=== PATIENT | female | born 1990 | race Hispanic/Latino ===

== ENCOUNTER 2024-08-24 13:46 | Emergency (ER) | payer OTHER ==
[~2024-08-24] VITALS: Ht 157.5 cm; Wt 72.6 kg
[~2024-08-24 13:46] MED LIST: FERR-82 PO; PREN1TAB80 PO
--- NOTE | 2024-08-24 14:59 | ERN ---
ED Note History of Present Illness Stated Complaint: VOMITING Time Seen by MD: 13:47 Dictation: Patient is a 33-year-old female coming in today with complaints of being recently diagnosed with cholelithiasis last week however has not been referred to a surgeon. She states since she has been having right upper quadrant and epigastric pain with nausea vomiting and can not keep any food down. No fever no chills no chest pain no back pain no change in urination. Allergies: Coded Allergies: No Known Drug Allergies (Unverified Allergy, Unknown, 04/03/24) Home Meds Reported Medications Ferrous Sulfate (Iron) 325 Mg (65 Mg Iron) Tablet, 325 MG PO DAILY, TAB 04/04/24 Vits W-Ca,Fe,FA(<1Mg) ( Vitamins) 27 Mg Iron-800 Mcg Tablet, 1 EACH PO DAILY, TAB 04/04/24 Past Medical History Past Medical History: No Pertinent History Surgical History: Tonsillectomy, BTL Surgical History Other: BREAST AUGMENTATION, LIPO History: Not Applicable : 5 Para: 2 Aborts: 0 RN Note Reviewed/Agreed w/PFSH: Yes Review of System Dictation CONSTITUTIONAL: Negative except for HPI HEAD/FACE: Negative except for HPI EENT: Negative except for HPI RESPIRATORY: Negative except for HPI GASTROINTESTINAL/ABDOMINAL: Negative except for HPI right upper quadrant/ epigastric pain with nausea vomiting GENITOURINARY: Negative except for HPI MUSCULOSKELETAL: Negative except for HPI INTEGUMENTARY: Negative except for HPI NEUROLOGICAL/PSYCH: Negative except for HPI HEMATOLOGIC/LYMPHATIC: Negative except for HPI All Systems Negative, Except as noted above. 13 point review of systems assessed and all negative except for above. Initial Vital Sign VS Vital Signs Date Time Temp Pulse Resp B/P (MAP) Pulse Ox O2 Delivery O2 Flow Rate FiO2 08/24/24 15:20 97.9 94 18 135/86 94 Room Air 0 08/24/24 17:42 21 Physical Exam Dictation Vital Signs reviewed General Appearance: Alert, oriented x 3, moderate acute distress, well dev eloped, nourished. Head and Face: non-traumatic. Eyes: PERRL, pink conjunctivas, eyelid no trauma, anterior chamber with arcus senilis. Ears: Pinnas intact and no signs of trauma or erythema ear canals clear and no discharge TM no erythema Nose: No discharge, no bleeding. Oropharynx: Mouth normal, tongue pink, pharynx clear,no erythema, tonsils no exudates, no abscesses noted, mucous membrane moist Neck: Supple, non-tender, no thyromegaly, no masses, no JVD, no bruits Breast:Deferred Chest:No tenderness, no crepitus, no paradoxical movement, no retractions Lungs:Clear, well-ventilated, symmetric, no rales, no wheezing, no rhonchi, no stridor, good breath sounds bilaterally Heart: Regular rate, regular rhythm, no murmur, no gallops Vascular: no peripheral edema, Abdomen: Soft, positive bowel sounds, nondistended, no guarding, Mild Newby's sign, and epigastric tenderness with palpation. Rectal: Deferred Genital: Deferred Neurological: Normal speech, motor function intact, sensory function intact Musculoskeletal: Neck nontender, full range of motion, back nontender, full range of motion, Extremities: nontender, full range of motion Skin: Color pink, dry, no turgor, no rash, no lacerations, no abrasions, no contusions. Lymphatic: Deferred Results (Laboratory/Radiology) Laboratory/Radiology Laboratory Tests Test 08/24/24 15:04 08/24/24 15:46 White Blood Count 15.6 K/uL (4.8-10.8) H Red Blood Count 4.51 MIL/uL (4.00-5.50) Hemoglobin 13.9 g/dL (12.0-16.0) Hematocrit 41.1 % (36-48) Mean Corpuscular Volume 91.1 fL (79-99) Mean Corpuscular Hemoglobin 30.8 pg (27.0-33.0) Mean Corpuscular Hemoglobin Concent 33.8 g/dL (32.0-36.0) Red Cell Distribution Width 10.9 % (11.0-15.5) L Platelet Count 304 K/uL (130-400) Mean Platelet Volume 9.2 fL (7.5-10.5) Immature Granulocyte % (Auto) 0.6 % (0-1) Neutrophils (%) (Auto) 89.2 % (40.0-77.0) H Lymphocytes (%) (Auto) 5.6 % (21.0-51.0) L Monocytes (%) (Auto) 4.1 % (3.0-13.0) Eosinophils (%) (Auto) 0.3 % (0.0-8.0) Basophils (%) (Auto) 0.2 % (0.0-5.0) Neutrophils # (Auto) 13.9 K/uL (1.8-7.7) H Lymphocytes # (Auto) 0.9 K/uL (1.0-4.8) L Monocytes # (Auto) 0.6 K/uL (0.1-1.0) Eosinophils # (Auto) 0.04 K/uL (0.00-0.70) Basophils # (Auto) 0.03 K/uL (0.00-0.20) Absolute Immature Granulocyte (auto 0.09 K/uL (0-1) Nucleated Red Blood Cells 0.0 % (0.0-0.19) White Cell Morphology Comment See comments Sodium Level 145 mmol/L (136-145) Potassium Level 4.1 mmol/L (3.5-5.1) Chloride Level 107 mmol/L (101-111) Carbon Dioxide Level 30 mmol/L (21-32) Blood Urea Nitrogen 14 mg/dL (7-18) Creatinine 0.7 mg/dL (0.5-1.0) Glomerular Filtration Rate Calc 117 mL/min (>90) Random Glucose 94 mg/dL (70-105) Total Calcium 9.3 mg/dL (8.5-10.1) Lipase 26 U/L (16-77) Urine Color LIGHT-YELLOW (YELLOW) Urine Appearance CLEAR (CLEAR) Urine pH 7.0 (5.0-8.0) Urine Specific Warren 1.020 (1.001-1.031) Urine Protein NEGATIVE mg/dL (NEGATIVE) Urine Glucose (UA) NEGATIVE mg/dL (NEGATIVE) Urine Ketones 5 mg/dL (NEGATIVE) H Urine Occult Blood +- (TRACE) (NEGATIVE) H Urine Nitrate NEGATIVE (NEGATIVE) Urine Bilirubin NEGATIVE mg/dL (NEGATIVE) Urine Urobilinogen 0.2 mg/dL (0.2-1.0) Urine Leukocyte Esterase NEGATIVE Meg/uL Urine RBC 11-25 /HPF (0-1) H Urine WBC 2-5 /HPF (0-1) H Urine Squamous Epithelial Cells RARE /HPF (0-2) Urine Other Crystals (Auto) 1 /HPF (None Seen) Urine Bacteria RARE /HPF (None Seen) Urine Yeast FEW /HPF (None Seen) Urine HCG, Qualitative NEGATIVE (NEGATIVE) US ABDOMINAL RUQ\E\LTD HISTORY: Adominal Pain TECHNIQUE: US ABDOMINAL RUQ\E\LTD. FINDINGS: LIVER: The liver demonstrates normal echogenicity without focal lesions. GALLBLADDER: Contracted gallbladder with multiple gallstones. CBD: Measures up to 0.2 cm. PANCREAS: The visualized pancreas appears within normal limits. RIGHT KIDNEY: measures 10.5cm in length. No hydronephrosis or calculi. IMPRESSION: Contracted gallbladder with multiple gallstones. Labs Reviewed?: Yes ED Course ED Course Orders Procedure Category Date Status Time Cbc With Differential LAB 08/24/24 Complete 14:57 ,Urine Test LAB 08/24/24 Complete 14:57 Urinalysis Profile LAB 08/24/24 Complete 14:57 Us Abdominal Ruq\Ltd US 08/24/24 Resulted 14:57 0.9%Nacl 1000ml (Ns PHA 08/24/24 Complete 1000ml) 15:00 Ketorolac PHA 08/24/24 Complete Tromethamine 30mg/Ml 15:00 Ondansetron 4mg Inj PHA 08/24/24 Complete (Zofran 4mg Inj) 15:00 Lipase LAB 08/24/24 Complete 14:57 Basic Metabolic Panel LAB 08/24/24 Complete 14:57 Ibuprofen 800 Mg Tab PHA 08/24/24 Verified (Motrin) 18:30 Current Medications Medications (Trade) Dose Ordered Sig/Rayne Route PRN Reason Start Time Stop Time Status Last Admin Dose Admin Ketorolac Tromethamine (toRADol) 30 mg ONCE ONCE IVP 08/24/24 15:00 08/24/24 15:01 DC 08/24/24 17:11 Ondansetron HCl (zoFRAN 4MG INJ) 4 mg ONCE ONCE IVP 08/24/24 15:00 08/24/24 15:01 DC 08/24/24 17:11 Sodium Chloride 1,000 ml @ 0 mls/hr ONCE ONCE IV 08/24/24 15:00 08/24/24 15:01 DC 08/24/24 17:11 Vital Signs Date Time Temp Pulse Resp B/P (MAP) Pulse Ox O2 Delivery O2 Flow Rate FiO2 08/24/24 17:42 98.2 81 18 122/73 99 Room Air* 0 21 08/24/24 15:20 97.9 94 18 135/86 94 Room Air 0 1815/SPOKE WITH /SURGEON AND REVIEWED ULTRASOUND AND LABS. SHE SAID TO HAVE PATIENT BE DISCHARGED HOME AND HAVE HER FOLLOW UP IN HER OFFICE IN THE MORNING A WALK-IN, CALL HER OFFICE AT 08:00 FOR THE APPOINTMENT. Medical Decision Making MDM MDM: DIFFERENTIAL DIAGNOSIS: CHOLELITHIASIS/CHOLANGITIS/CHOLEDOCHOLITHIASIS/GASTRITIS RATIONALE: TESTS CONSIDERED AND ORDERED SECONDARY TO SHARED DECISION MAKING INCLUDE: LABS/RADIOLOGY PREVIOUS OUTSIDE RECORDS REVIEWED: OLD ER VISITS. REVIEWED RISK OF COMPLICATION AND/OR MORBIDITY OR MORTALITY OF PATIENT MANAGEMENT: NONE MEDICATIONS-PER MEDICATION RECONCILIATION NEED FOR HOSPITALIZATION: PATIENT DOES NOT MEET CRITERIA FOR HOSPITALIZATION. NO NEED FOR EMERGENCY MAJOR/MINOR SURGERY: POSSIBLE ELECTIVE CHOLECYSTECTOMY THERE ARE NO SOCIAL CONCERNS WITH THIS PATIENT. PRESCRIPTION DRUG MANAGEMENT BENTYL PRESCRIPTIONS WILL INCLUDE SYMPTOMATIC CARE PATIENT'S PRIOR EXTERNAL MEDICAL RECORDS FROM OTHER ER VISITS WERE REVIEWED BY ME INDICATED. PRIOR TESTING AND RESULTS FROM PREVIOUS VISITS WERE REVIEWED. PRIOR TESTS WERE TAKEN INTO ACCOUNT WITH MEDICAL DECISION MAKING AND RESOURCE UTILIZATION, INDEPENDENT HISTORIAN/HISTORIANS WERE USED TO OBTAIN COMPLETE MEDICAL HISTORY. I INDEPENDENTLY INTERPRETED THE TEST THAT WERE PERFORMED, RESULTS WERE REVIEWED BY ME AND CONSIDERED FINDINGS ON RADIOLOGY IF ORDERED. MEDICAL MANAGEMENT AND EXAMINATION INTERPRETATION DISCUSSIONS WERE HAD BY ME WITH OTHER QUALIFIED HEALTHCARE PROFESSIONALS INDICATED FOR THE PATIENT'S CARE. DX & DISP Disposition: Discharge Departure Impression: Primary Impression: Cholelithiasis Additional Impression: Nausea & vomiting Condition: Stable Scripts Ondansetron (Ondansetron Odt) 4 Mg Tab.rapdis 4 MG PO Q6HPRN PRN for nausea, #16 TAB 0 Refills Prov: ALEXEI VIRGEN COATER 08/24/24 Dicyclomine HCl (Bentyl) 20 Mg Tab 20 MG PO Q6HPRN PRN for ABDOMINAL PAIN, #30 TAB Prov: ALEXEI VIRGEN COATER 08/24/24 Additional Instructions: FOLLOW-UP WITH PRIMARY CARE PROVIDER IN 1 TO 2 DAYS. TAKE MEDICATIONS DIRECTED HERE IN THE EMERGENCY ROOM. OKAY TO CONTINUE HOME MEDICATIONS UNLESS OTHERWISE DISCUSSED DURING YOUR VISIT IN THE EMERGENCY ROOM TODAY. RETURN TO YOUR NEAREST EMERGENCY ROOM IF SYMPTOMS WORSEN OR IF THERE IS NO IMPROVEMENT. CALL 911 IF YOU NEED IMMEDIATE ASSISTANCE. TAKE TYLENOL OR MOTRIN [id number] NEEDED AND IF NO CONTRAINDICATIONS ARE PRESENT. INCREASE ORAL HYDRATION. A WOUND CULTURE OR URINE CULTURE WAS ORDERED HERE IN THE EMERGENCY ROOM DEPARTMENT PLEASE FOLLOW-UP WITH PRIMARY CARE PROVIDER AND ADVISE THEM TO GET REPEAT PORTS FROM OUR FACILITY. IF YOU HAD ANY LULY WRAP/SPLINTS THAT WERE APPLIED HERE, PLEASE DO NOT REMOVE THEM UNTIL YOU SEE YOUR PRIMARY CARE OR SPECIALTY. FOLLOW A LOW-FAT DIET DISCUSSED. TAKE BENTYL DIRECTED FOR PAIN. CALL DR MATHEW OFFICE TOMORROW AT 08:00, PHONE NUMBER AREA CODE [phone] FOR AN APPOINTMENT A WALK-IN. TELL THE STAFF WHEN HE TALKED TO THEM THAT YOU ARE TO BE SEEN BY THE SURGEON TOMORROW. Referrals: BETTINA DEJESUS MD (PCP) OSWALDO LARKIN MD Time of Disposition: 18:20 I have reviewed the case, and I agree with, Diagnosis and Plan ALEXEI VIRGEN NP Aug 24, 2024 14:59
[2024-08-24 15:09] LABS: BASOPHILS # (AUTO) 0.03 K/uL (0.00-0.20); BASOPHILS % (AUTO) 0.2 % (0.0-5.0); EOSINOPHILS # (AUTO) 0.04 K/uL (0.00-0.70); EOSINOPHILS % (AUTO) 0.3 % (0.0-8.0); HEMATOCRIT 41.1 % (36-48); IMMATURE GRANULOCYTE ABSOLUTE 0.09 K/uL (0-1); LYMPHOCYTES # (AUTO) 0.9 K/uL (1.0-4.8); LYMPHOCYTES % (AUTO) 5.6 % (21.0-51.0); MEAN CORPUSCULAR HEMOGLOBIN 30.8 pg (27.0-33.0); MEAN CORPUSCULAR HGB CONC 33.8 g/dL (32.0-36.0); MEAN CORPUSCULAR VOLUME 91.1 fL (79-99); MONOCYTES # (AUTO) 0.6 K/uL (0.1-1.0); MONOCYTES % (AUTO) 4.1 % (3.0-13.0); NEUTROPHILS # (AUTO) 13.9 K/uL (1.8-7.7); NEUTROPHILS % (AUTO) 89.2 % (40.0-77.0); PLATELET COUNT (AUTO) 304 K/uL (130-400); RED BLOOD CELL COUNT(AUTO) 4.51 MIL/uL (4.00-5.50); RED CELL DISTRIBUTION WIDTH 10.9 % (11.0-15.5); WHITE BLOOD COUNT (AUTO) 15.6 K/uL (4.8-10.8)
[2024-08-24 15:21] LABS: CREATININE 0.7 mg/dL (0.5-1.0); POTASSIUM 4.1 mmol/L (3.5-5.1)
--- NOTE | 2024-08-24 15:27 | HMCIMG ---
US ABDOMINAL RUQ\E\LTD HISTORY: Adominal Pain TECHNIQUE: US ABDOMINAL RUQ\E\LTD. FINDINGS: LIVER: The liver demonstrates normal echogenicity without focal lesions. GALLBLADDER: Contracted gallbladder with multiple gallstones. CBD: Measures up to 0.2 cm. PANCREAS: The visualized pancreas appears within normal limits. RIGHT KIDNEY: measures 10.5cm in length. No hydronephrosis or calculi. IMPRESSION: Contracted gallbladder with multiple gallstones.
[2024-08-24 15:55] LABS: APPEARANCE,URINE CLEAR (CLEAR); BILIRUBIN,URINE NEGATIVE (NEGATIVE); COLOR,URINE LIGHT-YELLOW (YELLOW); GLUCOSE, URINE (UA) NEGATIVE (NEGATIVE); KETONES,URINE 5 mg/dL (NEGATIVE); LEUKOCYTE ESTERASE ,URINE NEGATIVE Leu/uL (NEGATIVE); NITRATE,URINE NEGATIVE (NEGATIVE); PROTEIN,URINE NEGATIVE (NEGATIVE); UROBILINOGEN,URINE 0.2 mg/dL (0.2-1.0)
[2024-08-24 15:56] LABS: ADD UA MICROSCOPIC YES
[2024-08-24 15:58] LABS: BACTERIA,URINE RARE /HPF (None Seen); HCG,QUALITATIVE URINE NEGATIVE (NEGATIVE); MUCUS,URINE RARE LPF (None Seen); SQUAMOUS EPITHELIAL CELL,UR RARE /HPF (0-2); UNCLASSIFIED CRYSTAL 1 /HPF (None Seen); YEAST,URINE BUDDING FEW /HPF (None Seen)
[2024-08-24] MEDS: ondanSETRON 4MG INJ IVP ONE (17:11)
[2024-08-24] MEDS: 0.9%NACL 1000ML 1,000 ML IV ONE (17:11)
[2024-08-24] MEDS: ketOROlac 30MG VIAL (30MG/ML) IVP ONE (17:11)
[2024-08-24 17:42] VITALS: BP 122/73; PULSE 81; RESP 18; TEMP 98.3; O2SAT 99
[2024-08-24] MEDS ORDERED: ONDA-243 PO (18:21)
[2024-08-24] MEDS ORDERED: DICY20TA2 PO (18:21)
[2024-08-24] MEDS: ibuPROFEN 800 MG TAB PO ONE (18:31)
--- NOTE | 2024-08-24 18:31 | NUR ---
PT [id number] STABLE VITALS WNL MILD C/O PAIN, MEDICATED PRIOR TO DC. IV REMOVED CATHETER INTACT, PT DRESSED, WALKED TO ED LOBBY DRIVEN HOME BY MOTHER. RX SENT TO PT PHARMACY.
== END 2024-08-24 18:32 | disposition home or self-care (01) ==
LOC: EDH 13:46
DX: K80.20 Calculus of gallbladder without cholecystitis without obstruction (principal); Z90.89 Acquired absence of other organs; Z98.51 Tubal ligation status
CPT/HCPCS: 99285; 96374; 76705; 96361; 96375; 80048; 83690; 85025; 81001; 81025; 36415; J1885; J7030; J2405